=== PATIENT | male | born 1965 | race Caucasian/White ===

== ENCOUNTER 2019-08-25 11:00 | Outpatient (RCR) | payer OTHER, SELFPAY | END 2019-08-25 12:02 | disposition home or self-care (01) | LOC: PT 11:00 | PROVIDERS: PCP Family Medicine; Visit Provider Orthopaedic Surgery Orthopaedic Trauma | DX: S82.871A Displaced pilon fracture of right tibia, initial encounter for closed fracture (principal); S82.831A Other fracture of upper and lower end of right fibula, initial encounter for closed fracture | CPT/HCPCS: 20560; 97010; 97014; 97110; 97112; 97140; 97163; 97164; G0283 ==